=== PATIENT | male | born 1965 | race African-American/Black ===

== ENCOUNTER 2017-03-25 10:08 | Emergency (ER) | payer OTHER ==
[~2017-03-25] VITALS: Ht 170.2 cm; Wt 80.3 kg
[~2017-03-25 10:08] MED LIST: BACTRIM,SEPT1 TABLET PO; BACTROBAN NASAL1 G1 BOTH NARES; KEFLEX500 MG PO; MOTRIN600 MG PO; OMEPRAZOLE40 M1 PO; PERCOCET 5/31 TABLET PO; PREDNISONE5 M1 PO; TRAMADOL HCL50 MG PO
[2017-03-25 11:41] LABS: APPEARANCE CLEAR ((CLEAR)); BILIRUBIN NEGATIVE; BLOOD NEGATIVE; COLOR YELLOW ((YELLOW)); GLUCOSE (STRIP) NEGATIVE; KETONES NEGATIVE; LEUKOCYTES NEGATIVE; NITRITE NEGATIVE; PROTEIN (STRIP) NEGATIVE; SPECIFIC GRAVITY 1.017 (1.000-1.030); UROBILINOGEN 0.2 MG/DL (0.2-1.0)
[2017-03-25 12:01] LABS: HEMATOCRIT 46.7 % (38.0-50.0); HEMOGLOBIN 15.5 G/DL (12.5-16.6); MCH 30.3 PG (29.0-34.0); MCHC 33.2 G/DL (30.0-36.0); MCV 91.2 FL (86-99); PLATELET COUNT 276 K/uL (156-360); RBC DIS.WIDTH-CV 13.8 % (11.8-14.6); RBC DIS.WIDTH-SD 46.6 % (39-53); RED BLOOD COUNT 5.12 M/uL (4.00-5.50); WHITE BLOOD COUNT 6.8 K/uL (4.1-10.2)
[2017-03-25 12:12] LABS: ALBUMIN 4.5 g/dL (3.2-4.8); CHLORIDE 103 mEq/L (99-109); POTASSIUM 4.3 mEq/L (3.7-5.4); SODIUM 136 mEq/L (136-147)
[2017-03-25 12:14] LABS: GLUCOSE 113 mg/dL (70-99); TOTAL PROTEIN 7.7 g/dL (6.4-8.3)
[2017-03-25 12:16] LABS: TOTAL BILIRUBIN 0.4 mg/dL (0.0-1.0)
[2017-03-25 12:18] LABS: ALKALINE PHOSPHATASE 74 IU/L (3-129); CREATININE 0.9 mg/dL (0.6-1.3); GFR ESTIMATE (CALCULATED) > 59 mL/min/ (58.99-99999)
[2017-03-25 12:19] LABS: UREA NITROGEN (BUN) 13 mg/dL (9-23)
[2017-03-25 12:20] LABS: AST (GOT) 23 IU/L (2-34)
[2017-03-25 12:21] LABS: ALT (GPT) 33 IU/L (3-49); LIPASE 24 U/L (1.0-51.0)
[2017-03-25] MEDS ORDERED: OMEPRAZOLE20 MG PO (13:19)
[2017-03-25 13:38] VITALS: BP 155/74
== END 2017-03-25 13:39 | disposition home or self-care (01) ==
LOC: EME 10:08
PROVIDERS: Physician Assistant
DX: R10.13 Epigastric pain (principal); K57.30 Diverticulosis of large intestine without perforation or abscess without bleeding; K21.9 Gastro-esophageal reflux disease without esophagitis; Z72.0 Tobacco use
CPT/HCPCS: 74177; 80053; 81003; 83690; 85027; 99281; 99284; J7040